=== PATIENT | male | born 1990 | race Caucasian/White ===

== ENCOUNTER 2018-01-01 02:26 | Observation (INO) | payer OTHER ==
[~2018-01-01] VITALS: Ht 177.8 cm; Wt 84.4 kg
[2018-01-01] VITALS (7 sets, daily range): BP systolic 102–142; BP diastolic 46–84
[2018-01-01 02:55] LABS: HEMATOCRIT 42.4 % (42.0-52.0); HEMOGLOBIN 14.4 gm/dL (14.0-18.0); MCH 32.7 pg (26.0-34.0); MPV 8.6 fl. (7.2-11.1); NUCLEATED RBCS 0 /100WBC; PLATELET COUNT* 171 thou/uL (150-400); RBC 4.41 mil/uL (4.50-6.00); RDW-CV 12.4 % (10.5-14.5); WBC 14.9 thou/uL (4.0-11.0)
[2018-01-01 03:00] LABS: CALCIUM 9.1 mg/dL (8.5-10.1); CREATININE 0.9 mg/dL (0.6-1.3); POTASSIUM 3.7 mmol/L (3.5-5.1)
[2018-01-01 03:05] LABS: ALBUMIN 4.7 g/dL (3.4-5.0); TOTAL BILIRUBIN 1.8 mg/dL (<0.1-1.0); TOTAL PROTEIN 7.8 g/dL (6.4-8.2)
[2018-01-01 03:08] LABS: URINE BLOOD NEGATIVE (Negative); URINE CLARITY CLEAR; URINE COLOR DARK YELLOW; URINE GLUCOSE-RANDOM NEGATIVE (Negative); URINE LEUKOCYTES-REFLEX NEGATIVE (Negative); URINE NITRITE-REFLEX NEGATIVE (Negative); URINE PROTEIN 1+ (Negative); URINE SPECIFIC GRAVITY 1.015 (1.005-1.030); URINE UROBILINOGEN 0.2 E.U./dl (0.2-1.0)
[2018-01-01 03:20] LABS: ICTOTEST (BILI CONFIRMATORY) Negative (Negative); URINE BILIRUBIN 1+ (Negative); URINE KETONES 3+ (Negative)
[2018-01-01 04:24] LABS: ABSOLUTE EOSINOPHILS 0.1 thou/uL (0.0-0.7); ABSOLUTE LYMPHOCYTES 0.9 thou/uL (0.8-5.3); ABSOLUTE MONOCYTES 1.2 thou/uL (0.0-1.2); ABSOLUTE NEUTROPHILS 12.7 thou/uL (1.6-8.1); ANISOCYTOSIS Occasional; PLATELET ESTIMATE ADEQUATE
[2018-01-01] MEDS ORDERED: NORCO 5-325 TA1 EACH PO (18:30)
--- NOTE | 2018-01-01 22:04 | OP ---
[address] [address] OPERATIVE REPORT Name: LEVAR KOTHARI Room: [address] M.R.#: [id number] Admission: 01/01/18 Attend Phys: Yana Lee DO Discharge: Date of : 89 Report #: [id number] THIS REPORT FOR: //name// CC: Yana Lee [facility] physician/PCP DATE OF SERVICE: 01/01/2018 PREOPERATIVE DIAGNOSIS: Acute appendicitis. POSTOPERATIVE DIAGNOSIS: Acute appendicitis. SURGEON: Yana Lee DO. PROCEDURE: Laparoscopic appendectomy. ANESTHESIA: General endotracheal. SPECIMENS: Appendix. ESTIMATED BLOOD LOSS: 25 mL. INDICATIONS: The patient is a 27-year-old gentleman who presented to the Emergency Department with acute onset of right lower quadrant pain. CT abdomen and pelvis was performed, which demonstrated evidence of acute appendicitis. The patient was explained the procedure including risks, benefits and alternatives. All questions were answered to the patient's satisfaction. Informed consent was obtained. DESCRIPTION OF PROCEDURE: After the patient was brought back to the operating room and placed in supine position, general anesthesia was induced. SCDs were placed on bilateral lower extremities and prophylactic antibiotics were administered. Next, after a timeout was performed. The abdomen was accessed via an infraumbilical Josh trocar. Dissection was carried down through subcutaneous tissues and a Josh trocar was placed. Abdomen was insufflated to 50 mm of CO2. The patient was then placed in Trendelenburg and airplaned towards the left. The cecum was identified. There were noted to be dense omental adhesions overlying the appendix. These were meticulously dissected free bluntly using a blunt grasper as well as a suction crimp setter. Once the appendix was visualized, a window was created in the mesoappendix using a [place] dissector at appendiceal base. An Endo-MANISHA blue staple load was then used to fire across the appendix at the level of the cecum. Next, the mesoappendix was transected using a MANISHA white staple load. Both staple lines were inspected and noted to be free from bleeding. The appendix was then placed with an Endopouch bag and brought out through the umbilical trocar site. Next, the right lower quadrant was suctioned. The pelvis was [place] [address] OPERATIVE REPORT Name: LEVAR KOTHARI Room: [address] [facility].#: [id number] Admission: 01/01/18 Attend Phys: Yana Lee DO Discharge: Date of : 89 Report #: [id number] amount of free fluid on CT and therefore, the pelvis was then aspirated free of approximately 100 mL of clear yellow ascites and was irrigated and suctioned until clear. Next, the patient was then placed back in the supine position. Staple lines were both inspected noting again to be free from any bleeding. Next, the 5-mm trocars was removed under direct visualization noting excellent hemostasis at the anterior abdominal wall. The Josh trocar was removed. The umbilical fascia was closed with an 0 Vicryl eahjvy-fb-zhyxk stitch. Local anesthetic was infiltrated in all surgical sites. Skin was then closed with 4-0 Monocryl in a subcuticular manner and Dermabond skin glue was applied for sterile dressing. All sponge, and instrument count was reported as correct x 2 at the end of the case. The patient tolerated the procedure well with no complications. He was awakened from anesthesia in the operating room and taken to PACU in stable condition for further recovery. <ELECTRONICALLY SIGNED> By: Yana Lee DO 01/01/18 2204 1829 1855Clong Lee DO /nt
[2018-01-02] VITALS: BP 102/53
[2018-01-02 04:00] VITALS: BP 111/57
[2018-01-02 07:49] VITALS: BP 102/51
[2018-01-02 09:45] VITALS: BP 102/51
--- NOTE | 2018-01-02 11:55 | EKG ---
[place] [address] ELECTROCARDIOGRAM REPORT Name: LEVAR KOTHARI Room: [address] M.R.#: [id number] Admission: 01/01/18 Attend Phys: Yana Lee DO Discharge: 01/02/18 Date of : 89 Report #: [id number] THIS REPORT FOR: //name// [facility] Test Date: 2018-01-01 Test Time: 19:07:12 Pat Name: LEVAR KOTHARI Department: Room: [facility] Gender: M Sales And Marketing Executive: RODOLFO : 1990 Requested By: Yana Lee Order Number: [id number] Ramses MD: Maximus Myers Measurements Intervals [place] Rate: 82 P: 74 NM: 162 QRS: 46 QRSD: 99 T: 44 QT: 367 QTc: 429 Interpretive Statements Sinus rhythm Multiple ventricular premature complexes No previous ECG available for comparison Electronically Signed On 01-02-2018 11:55:40 CDT by Maximus Myers [email or web address] <ELECTRONICALLY SIGNED> By: Maximus Myers MD, [facility] 01/02/18 1155 06 06 Maximus Myers MD, [facility] /EPI
--- NOTE | 2018-01-02 11:56 | EKG ---
[place] [address] ELECTROCARDIOGRAM REPORT Name: TAYELEVAR Room: [address] M.R.#: [id number] Admission: 01/01/18 Attend Phys: Yana Lee DO Discharge: 01/02/18 Date of : [birth year] Report #: [id number] THIS REPORT FOR: //name// [facility] Test Date: 2018-01-02 Test Time: 08:34:57 Pat Name: LEVAR KOTHARI Department: Room: [facility] Gender: M Key Entry Operator: : 1990 Requested By: Natali Castro Order Number: [id number] Reading MD: Maximus Myers Measurements Intervals [place] Rate: 42 P: 60 [place]: 169 QRS: 38 QRSD: 97 T: 27 QT: 480 QTc: 402 Interpretive Statements Sinus bradycardia No previous ECG available for comparison Electronically Signed On 01-02-2018 11:56:06 CDT by Maximus Myers [email or web address] <ELECTRONICALLY SIGNED> By: Maximus Myers MD, [facility] 01/02/18 1156 D: 10833 3 Maximus Myers MD, FAC /EPI
--- NOTE | 2018-01-10 07:06 | PATH ---
[address] [address] PATHOLOGY RPT PROCEDURE Name: ROHINI KOTHARI Room: [address] Farnaz James#: [id number] Admission: 01/01/18 Date of : [birth year] Discharge: 01/02/18 Report #: [id number] Path Case #: [id number] [facility] Accession Number: [id number] . 01 Material submitted: . APPENDIX . 01 Clinician provided ICD-10: K35.80 . 01 Clinical history: . Acute appendicitis . 02 Diagnosis: Appendix: - Acute appendicitis, elieser-appendicitis and serositis. . (TIAN:vjm;01/03/2018) AGA/01/04/2018 . 02 Electronically signed: . Riaz Whipple MD, Pathologist NPI- [id number] . 01 Gross description: . The specimen is received in formalin, labeled "Rohini Kothari, appendix", is an appendix measuring 8.0 cm in length and up to 1.2 cm in diameter and attached hemorrhagic mesoappendix measuring 5.0 x 1.3 x 0.7 cm. The proximal margin is closed by a single staple line measuring 1.5 cm in length and up to 0.2 cm in width. The staple line is removed and the adjacent serosa is inked black. The serosa is diffusely hemorrhagic and covered by giraldo-white exudate that extends to the adjacent mesoappendix and has no perforation. The lumen is dilated and filled with soft hemorrhagic material and in no discrete fecalith. The wall measures up to 0.4 cm thick. Linking Machine Operator tissue is submitted in A1-A2 (A1 = proximal margin and mid appendix and A2 = tip longitudinal section) (SWS; 01/02/2018) SHS/SHS . 02 Pathologist provided ICD-10: K35.80 . 02 CPT . 746540 Specimen Comment: A courtesy copy of this report has been sent to Specimen Comment: [phone]. Specimen Comment: Report sent to Performed at: [address] [place] [address] PATHOLOGY RPT PROCEDURE Name: ROHINI KOTHARI Celine Room: [address] M.RPina#: [id number] Admission: 01/01/18 Date of : 89 Discharge: 01/02/18 Report #: [id number] Path Case #: [id number] [facility] Adelina Otero [address], [place], [place] [id number] MD Michael Javier MD Phone: [phone] Performed at: 02 [facility] [address], [place], [place] [id number] MD Riaz Whipple MD Phone: [phone]
== END 2018-01-02 10:10 | disposition home or self-care (01) ==
LOC: M.ERS 02:26 → M.TBA-ER 03:59 → M.2W 03:59 → M.ORTHSURG 03:59 → M.ERS 05:07 → M.ORTHSURG 05:26 → M.2W 19:25
PROVIDERS: Emergency Medicine; ADMIT Surgery
DX: K35.80 Unspecified acute appendicitis (principal); F12.90 Cannabis use, unspecified, uncomplicated; Z72.89 Other problems related to lifestyle

== ENCOUNTER 2018-01-04 14:15 | Emergency (ER) | payer OTHER ==
[~2018-01-04] VITALS: Ht 177.8 cm; Wt 80.3 kg
[~2018-01-04 14:15] MED LIST: NORCO 5-325 TA1 EACH PO
[2018-01-04 14:39] LABS: URINE BILIRUBIN NEGATIVE (Negative); URINE BLOOD NEGATIVE (Negative); URINE CLARITY CLEAR; URINE COLOR YELLOW; URINE GLUCOSE-RANDOM NEGATIVE (Negative); URINE KETONES 1+ (Negative); URINE LEUKOCYTES-REFLEX NEGATIVE (Negative); URINE NITRITE-REFLEX NEGATIVE (Negative); URINE PROTEIN NEGATIVE (Negative); URINE SPECIFIC GRAVITY 1.015 (1.005-1.030); URINE UROBILINOGEN 0.2 E.U./dl (0.2-1.0)
[2018-01-04 15:00] LABS: ABSOLUTE LYMPHOCYTES 0.8 thou/uL (0.8-5.3); ABSOLUTE MONOCYTES 0.3 thou/uL (0.0-1.2); ABSOLUTE NEUTROPHILS 3.1 thou/uL (1.6-8.1); BASOPHILS 0.1 %; EOSINOPHILS 0.5 %; HEMATOCRIT 36.3 % (42.0-52.0); HEMOGLOBIN 12.3 gm/dL (14.0-18.0); LYMPHOCYTES 19.4 %; MCH 32.8 pg (26.0-34.0); MCV 96.4 fL (80.0-100.0); MONOCYTES 6.5 %; MPV 8.4 fl. (7.2-11.1); NUCLEATED RBCS 0 /100WBC; PLATELET COUNT* 151 thou/uL (150-400); POLYS 73.5 %; RBC 3.77 mil/uL (4.50-6.00); RDW-CV 12.4 % (10.5-14.5); WBC 4.3 thou/uL (4.0-11.0)
[2018-01-04 15:13] LABS: CALCIUM 8.5 mg/dL (8.5-10.1); CREATININE 0.7 mg/dL (0.6-1.3)
[2018-01-04 15:18] LABS: ALBUMIN 3.6 g/dL (3.4-5.0); TOTAL BILIRUBIN 0.4 mg/dL (<0.1-1.0); TOTAL PROTEIN 6.7 g/dL (6.4-8.2)
[2018-01-04] MEDS ORDERED: ZOFRAN ODT4 MG PO (17:26)
[2018-01-04 18:17] VITALS: BP 113/69
== END 2018-01-04 18:17 | disposition home or self-care (01) ==
LOC: M.ERS 14:15
PROVIDERS: Physician Assistant
DX: R51 Headache (principal); R11.2 Nausea with vomiting, unspecified; R10.84 Generalized abdominal pain; Z90.49 Acquired absence of other specified parts of digestive tract